=== PATIENT | female | born 1990 | race Caucasian/White ===

== ENCOUNTER 2019-04-28 13:47 | Emergency (ER) | payer MEDICAID ==
[~2019-04-28] VITALS: Ht 175.3 cm; Wt 97.7 kg
[2019-04-28 13:53] VITALS: BP 156/82
[2019-04-28] MEDS ORDERED: ketorolac trometh inj. 60 MG/2 ML VIAL IM ONE (14:30)
[2019-04-28] MEDS ORDERED: HYDR-4353 PO (15:37)
== END 2019-04-28 15:52 | disposition home or self-care (01) ==
LOC: ER 13:48
DX: S83.092A Other subluxation of left patella, initial encounter (principal); F17.200 Nicotine dependence, unspecified, uncomplicated; F10.99 Alcohol use, unspecified with unspecified alcohol-induced disorder; Z79.899 Other long term (current) drug therapy; X50.1XXA Overexertion from prolonged static or awkward postures, initial encounter; Y93.01 Activity, walking, marching and hiking; Y92.89 Other specified places as the place of occurrence of the external cause; Y99.8 Other external cause status; Y90.9 Presence of alcohol in blood, level not specified
CPT/HCPCS: 29505; 73564; 96372; 99283; J1885